=== PATIENT | female | born 1940 | race Caucasian/White ===

== ENCOUNTER 2025-06-04 14:33 | Outpatient (AMB) | payer MEDICARE, SELFPAY ==
--- NOTE | 2025-06-04 15:20 | MHC.PC.OV ---
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 ?? Prior PCP:? Last office visit/CPE:? 4-5 mos for annual checkup Acute issue(s):? None ?? PMHx:? HTN, CML Dr Schulz at [facility] seen q6 mos. Breast Lumps and Pt chose mastectomies. Pt says pathology showed NO cancer. Glaucoma. Mitral Valve Prolapse Dr Vicente SurgHx:?Double Mastectomy. Hysterectomy. SocHx: Nonsmoker. 1 glass of wine in evenings. [facility] Medical History (Updated 06/04/25 @ 15:50 by Arya Casas) Osteoporosis Surgical History (Updated 06/04/25 @ 15:22 by OC Cool) H/O: hysterectomy H/O mastectomy Social History (Updated 06/04/25 @ 15:22 by OC Cool) Housing: House Patient Tobacco Use Status: Never used Tobacco e-Cigarette/Vaping Use: Never Used Second Hand Smoke Exposure: No service: No Current occupational status: retired Current occupational exposures/hazards: No Cognitive needs: No Hearing needs: No Vision needs: Yes Questionnaire PHQ-9 Over the last 2 weeks, how often have you been bothered by any of the following problems? 1. Little interest or pleasure in doing things: not at all 2. Feeling down, depressed, or hopeless: not at all 3. Trouble falling or staying asleep, or sleeping too much: not at all 4. Feeling tired or having little energy: not at all 5. Poor appetite or overeating: not at all 6. Feeling bad about yourself - or that you are a failure or have let yourself or your family down: not at all 7. Trouble concentrating on things, such as reading the newspaper or watching television: not at all 8. Moving or speaking so slowly that other people could have noticed. Or the opposite - being so fidgety or restless that you have been moving around a lot more than usual: not at all 9. Thoughts that you would be better off or of hurting yourself in some way: not at all Total score: 0 Depression Screening Interpretation: Negative Depression Screening Done: Yes 75702 - PHQ-9 Billing: Yes Source: Developed by Drs. Tacos Raya, Kayla Dotson, Wiliam Montemayor and colleagues, with an educational coral from [employer]. Thrive Questionnaire Date Thrive assessed: 06/04/25 I am a: Patient What is your living situation today?: I have a steady place to live Within the past 12 months, did the food you bought not last and you didn't have the money to get more?: Never true Within the past 12 months, did you worry whether your food would run out before you got money to buy more?: Never true Do you have trouble paying for medicines?: No Do you have trouble getting transportation to medical appointments?: No Do you have trouble paying your heating and electricity bill?: No Do you have trouble taking care of your child, family member or friend?: No Do you have trouble with day-to-day activities such as bathing, preparing meals, shopping, managing finances, etc.?: No Are you currently unemployed and looking for a job?: No Are you interested in more education?: No Please select the resources that you would like help with: None Currently or been in a relationship where the following occur: No concerns reported THRIVE Score: 0 AUDIT C Alcohol Use Questionnaire (AUDIT-C) 1. How often do you have a drink containing alcohol?: 2-3 times a week 2. How many drinks containing alcohol do you have on a typical day when you are drinking?: 1 or 2 3. How often do you have six or more drinks on one occasion?: Never Total Score: 3 Score Reviewed/Action Taken: Yes MARCOS-7 AMB Questionnaire MARCOS-7 Date MARCOS - 7 assessed: 06/04/25 Feeling nervous, anxious, or on edge: 0 = Not at all Not being able to stop or control worryin = Not at all Worrying too much about different things: 0 = Not at all Trouble relaxin = Not at all Being so restless that it is hard to sit still: 0 = Not at all Becoming easily annoyed or irritable: 0 = Not at all Feeling afraid as if something awful might happen: 0 = Not at all Total MARCOS-7 score (0-4 normal; 5-9 mild; 10-14 moderate; 15-21 severe): 0 Source: Developed by Drs. Tacos Raya, Kayla Dotson, Wiliam Montemayor and colleagues, with an educational coral from [employer]. MARCOS-7 Assessment Billing MARCOS-7 Assessment Tool: MARCOS-7 Assessment 91962 ACT Questionnaire In the past 4 weeks, how much of the time did your asthma keep you from getting as much done at work, school or at home?: None of the time During the past 4 weeks, how often have you had shortness of breath?: Not at all During the past 4 weeks, how often did your asthma symptoms wake you up at night or earlier than usual in the morning?: Not at all During the past 4 weeks, how often have you had to use your rescue inhaler or nebulizer medication?: Not at all How would you rate your asthma control during the past 4 weeks?: Completely controlled ACT Interpretation: Negative Score: 25 Review of Systems Const Denies chills, Denies fatigue, Denies fever(s), Denies headache(s) and Denies weakness ENT Denies dizziness and Denies headache(s) Card Denies chest pain, Denies lightheadedness, Denies dyspnea and Denies other (Palpitations) Resp Denies cough, Denies dyspnea, Denies wheezing and Denies other ( shortness of breath) Musc Denies numbness and Denies tingling Neuro Denies dizziness, Denies headache(s), Denies numbness, Denies tingling, Denies paresthesias and Denies weakness Psych Denies anxiety and Denies depression Endo Denies fatigue Aller/Immun Denies wheezing Physical exam (Primary Care) Depression Screening Interpretation: Negative Thrive Assessment: Date of Thrive Assessment Date Thrive assessed 05/28/25 06/04/25 15:21 Currently or been in a relationship where the following occur: No concerns reported Const General: no acute distress and well developed Nutritional Appearance: well nourished Orientation/consciousness: patient oriented x3 HENMT Head: Yes normocephalic and Yes atraumatic Eyes General: appearance normal, both eyes and all related structures Pupils: Equal, round and reactive pupils present EOM: EOMs intact bilaterally Resp Effort & Inspection: normal respiratory effort Auscultation: clear to auscultation bilaterally Cardio Rate: regular rate Rhythm: regular rhythm Heart sounds: S1 normal heart sound present, S2 normal heart sound present, no gallops, no murmurs and no rubs Neuro General: patient oriented x3 and gait normal Cranial nerves: Yes Equal, round and reactive pupils present Psych Affect: normal affect Coding Level of Care Code New Pt Level 3 (94847) Diagnoses Hypertension I10 History of mitral valve prolapse Z86.79 CML (chronic myelocytic leukemia) C92.10 Laboratory exam ordered as part of routine general medical examination Z00.00 Additional Codes Asthma Control Questionnaire - ACT Interpretation: Negative ([id number]) MARCOS-7 Assessment Billing - MARCOS-7 Assessment Tool: MARCOS-7 Assessment 15652 ([id number]) PHQ-9 - 02054 - PHQ-9 Billing: Yes ([id number]) Assessment & Plan Assessment & Plan (1) Hypertension: Code(s): I10 - Essential (primary) hypertension Category: Medical Plan: Blood pressure is well controlled. Goal is less than 130/80 Continue current medication (2) History of mitral valve prolapse: Code(s): Z86.79 - Personal history of other diseases of the circulatory system Category: Medical Plan: Followed by Dr. Vicente Maintain good blood pressure control Stable Follow-up with Cardiology as recommended (3) CML (chronic myelocytic leukemia): Code(s): C92.10 - Chronic myeloid leukemia, BCR/ABL-positive, not having achieved remission Category: Medical Plan: Followed by Hematology-Oncology at [facility] She is on hydroxyurea and aspirin Follow-up with Heme-Onc q.6 months as recommended (4) Laboratory exam ordered as part of routine general medical examination: Code(s): Z00.00 - Encounter for general adult medical examination without abnormal findings Category: Medical Plan: Check labs Orders: Orders Complete Blood Count Auto Diff Today Z00.00 - Encounter for general adult medical examination without abnormal findings Microalbumin, Random (w Creat) Today I10 - Essential (primary) hypertension Vitamin B12 and Folate Today E53.8 - Deficiency of other specified B group vitamins Comprehensive [place]. Panel Fast Today Z00.00 - Encounter for general adult medical examination without abnormal findings Lipid Panel Today Z00.00 - Encounter for general adult medical examination without abnormal findings TSH reflex Free T4 Today Z00.00 - Encounter for general adult medical examination without abnormal findings UA CC w/rflx Micro + Cult Today Z00.00 - Encounter for general adult medical examination without abnormal findings Vitamin D 25-OH Total Today E55.9 - Vitamin D deficiency, unspecified
[2025-06-04 15:32] VITALS: BP 110/58; PULSE 60; RESP 12; TEMP 36.5; O2SAT 98; BMI 17.8
--- OUTSIDE RECORDS SUMMARY | 2025-06-04 18:04 | XMS_ITS | Clinical Summary ---
Author Organization [facility] Address [address] [place] [address] Care Team Providers Care Industrial Eng Name Role Phone Chauncey Campos MD Primary Care Provider [phone] Allergies No known active allergies Medications Medication Sig Dispensed Refills Start Date End Date Status Brimonidine Tartrate (ALPHAGAN P OP) Apply 1 drop to eye 2 (two) times a day. 0 Active amLODIPine (NORVASC) tablet 10 mg Take 1 tablet (10 mg total) by mouth daily. 0 Active aspirin EC 81 MG tablet Take 1 tablet (81 mg total) by mouth daily. 0 Active Calcium Citrate 250 MG TABS Take by mouth. 0 Active vitamin D3 (cholecalciferol) 25 MCG (1000 UT) tablet Take 1 tablet (25 mcg total) by mouth daily. 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 03/28/2022 Social History Tobacco Use Types Packs/Day Years Used Date Smoking Tobacco: Never Assessed Sex and Gender Information Value Date Recorded Sex Assigned at Not on file Gender Identity Not on file Sexual Orientation Not on file Job Start Date Occupation Industry Not on file Not on file Not on file Last Filed Vital Signs Vital Sign Reading Time Taken Comments Blood Pressure 127/53 03/27/2024 10:25 AM EDT Pulse 85 03/27/2024 10:25 AM EDT Temperature 36.4 C (97.6 F) 03/27/2024 10:25 AM EDT Respiratory Rate - - Oxygen Saturation 98% 03/27/2024 10:25 AM EDT Inhaled Oxygen Concentration - - Weight 47.9 kg (105 lb 9.6 oz) 03/27/2024 10:25 AM EDT Height 157.5 cm (5' 2 ) 03/27/2024 10:25 AM EDT Body Mass Index 19.31 03/27/2024 10:25 AM EDT Plan of Treatment Health Maintenance Due Date Last Done Comments COVID-19 Vaccine (#1) 1941 Depression Screening 1953 Preventative Health Evaluation 1959 DTap / Tdap / Td (1 - Tdap) 1960 Shingrix-Zoster Vaccine (1 of 2) 1991 Fall Risk Assessment 2006 Osteoporosis Screening (DEXA Scan) 2006 RSV Adult > 60+ Yrs or Pregn ant (1 - 1-dose 75+ series) 2016 Influenza Vaccine (#1) 2025 Pneumococcal Vaccine Completed 12/13/2022 Hepatitis B Vaccines Aged Out No long er eligible based on patient's age to complete this topic RSV Ped < 20 months Aged Out No longe r eligible based on patient's age to complete this topic Care Teams Industrial Eng Relationship Specialty Start Date End Date Chauncey Campos MD [address] [place] [address] [place] [address] PCP - General Internal Medicine 12/13/21
== END 2025-06-04 15:54 | disposition home or self-care (01) ==
LOC: HO.HMCFM 14:36
PROVIDERS: PCP Family Medicine; Visit Provider Family Medicine
DX: I10 Essential (primary) hypertension (principal); Z86.79 Personal history of other diseases of the circulatory system; C92.10 Chronic myeloid leukemia, BCR/ABL-positive, not having achieved remission; Z00.00 Encounter for general adult medical examination without abnormal findings

== ENCOUNTER → 2025-06-04 14:33 | Outpatient (BNVA) | payer MEDICARE, SELFPAY | PROVIDERS: PCP Family Medicine; Visit Provider Family Medicine | DX: Z00.00 Encounter for general adult medical examination without abnormal findings (principal); C92.10 Chronic myeloid leukemia, BCR/ABL-positive, not having achieved remission; I10 Essential (primary) hypertension; E53.8 Deficiency of other specified B group vitamins; Z86.79 Personal history of other diseases of the circulatory system | CPT/HCPCS: 96127; 96160; 99202 ==

== ENCOUNTER 2025-06-10 07:58 | Outpatient (REF) | payer MEDICARE, SELFPAY ==
[2025-06-10 12:11] LABS: Hematocrit 44.6 % (37.0-47.0); Hemoglobin 15.8 g/dl (12.0-16.0); Imm Gran Abs Auto 0.01 X10*3/uL (0.00-0.03); Imm Gran Pct Auto 0.2 % (0.0-0.4); Lymphocytes Absolute Auto 1.6 X10*3/uL (1.2-4.9); Mean Corpuscular HGB Conc 35.4 g/dl (31.0-35.0); Mean Corpuscular Hemoglobin 39.4 pg (27.0-33.0); NRBC Abs Auto 0.000 X10*3/uL (0.0-0.012); NRBC Pct Auto 0.0 /100WBC (0.0-0.2); Platelet Count 207 X10*3/uL (160-400); Red Blood Count 4.01 X10*6/uL (4.20-5.50); White Blood Count 5.4 X10*3/uL (4.8-10.8)
[2025-06-10 12:30] LABS: MANUAL DIFF FLAG SCAN; Mean Corpuscular Volume 111.2 fL (80.0-98.0)
[2025-06-10 12:40] LABS: Folate 10.8 ng/mL (> or = 4.0); Vitamin B12 230 pg/mL (200-900)
[2025-06-10 12:48] LABS: Alanine Aminotransferase 22 U/L (0-31); Albumin Level 4.3 g/dL (3.5-5.0); Alkaline Phosphatase 70 U/L (39-117); Anion Gap 11 (12-20); Aspartate Amino Transferase 28 U/L (5-31); Blood Urea Nitrogen 17 mg/dL (9-16); Calcium 9.3 mg/dL (8.4-10.2); Carbon Dioxide 25 mmol/L (22-29); Chloride 106 mmol/L (96-108); Cholesterol 207 mg/dL (<200); Estimated Glomerular Filt Rate > 60; HDL Cholesterol 92 mg/dL (>40); Potassium 4.0 mmol/L (3.3-5.1); Sodium 138 mmol/L (135-145); Total Protein 7.0 g/dL (6.5-8.0); Triglycerides 72 mg/dL (<150)
[2025-06-10 14:34] LABS: Appearance Urine Cloudy; Glucose Urine UA Negative (Negative); PH 7.0 (5.0-9.0); Specific Gravity - Urine 1.015 (1.005-1.025); UMIC TRIGGER UACC YES
[2025-06-10 14:40] LABS: UACC Culture Trigger YES
[2025-06-10 15:22] LABS: Microalbum/Creatinine Ratio Ur 31.5 ug/mg cr (<30)
== END 2025-06-10 07:59 | disposition home or self-care (01) ==
LOC: HO.WFDLDS 07:58
PROVIDERS: Visit Provider Family Medicine
DX: Z00.00 Encounter for general adult medical examination without abnormal findings (principal); Z13.21 Encounter for screening for nutritional disorder; I10 Essential (primary) hypertension; E53.8 Deficiency of other specified B group vitamins; E55.9 Vitamin D deficiency, unspecified
CPT/HCPCS: 36415; 80053; 80061; 81001; 82043; 82306; 82570; 82607; 82746; 84443; 85025; 87086; 87088; 87186